=== PATIENT | male | born 1955 ===

== ENCOUNTER → 2018-08-13 | Outpatient (CLI) | payer OTHER ==
[~2018-08-13] MED LIST: ASCO500T2 PO; GLUC1CAP48 PO; MULT1TAB52 PO; OMEG1CAP6 PO
--- NOTE | 2018-08-13 21:31 | PAIN ---
DATE OF SERVICE: 08/13/2018 INITIAL CONSULTATION FOR PAIN CLINIC CHIEF COMPLAINT: Low back and right lower extremity pain. HISTORY OF PRESENT ILLNESS: This is a 62-year-old male who presents with history of pain for many years starting in 1980. 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 The patient reports he was doing fairly stable until about 2-1/2 months ago, he fell off a ladder at home and increased the pain in his low back and into his right lower extremity with some pain into the hip and into the thigh. This is cleared up significantly since the injury, but the pain in the back remains. The patient reports it is constant, described as intermittent changes during the day, aching, cramping, sharp, dull, alternating with some radiating shooting pain in the right leg again, which is significantly improved, but the back pain is still fairly tight, throbbing and stabbing. The patient did have an MRI scan of the lumbar spine showing a recent compression fracture superior endplate of L1, multiple degenerative disk disease levels with significant neural foraminal stenosis at L4-L5 and L5-S1 with prominent right paracentral disk protrusion at L4-L5. The patient rates his disability rate 0-10, 10 being the worst, as a 5 with family home responsibilities, social activity, occupation, 4 with sexual behavior, self-care and life support activities. The patient has not taken any [id number] medications or other modalities to try and decrease the pain. He does take some herbal supplements he reports, is unsure of the names and the patient has had [facility]rop[facility]ic treatment and [facility], which he reports does help; also soaks in a hot tub, which helps and do some massage therapies heat and ice applications. The patient reports the pain awakens him from sleep during night about once or twice a night, does not affect his bowel or bladder control but does affect his ability to walk. He is not using any assistive devices. He does not walk long distances greater than 20-30 minutes. PAST MEDICAL HISTORY: Significant for hearing loss in the right ear, irritable bowel syndrome, sleep apnea, hyperlipidemia, dizziness, headaches and arthritis. PAST SURGICAL HISTORY: Previous surgeries include tonsillectomy, sinus cyst removal and cholecystectomy. CURRENT MEDICATIONS: Include vitamin C, multivitamins, glucosamine and omega fish oil. ALLERGIES: The patient has no known drug allergies. FAMILY HISTORY: Significant for no major medical problems or conditions he is aware of. SOCIAL HISTORY: The patient does not drink alcohol; does not smoke and does not use any illegal, illicit or recreational drugs. He is and lives with his spouse, has one child, living at home, lives locally in [place], [place]. Reports he is retired from the [employer], now 28 years. REVIEW OF SYSTEMS: The patient's review of systems is positive for those items mentioned in history of present illness. All systems reviewed and otherwise negative. It is complete, full and well documented on the patient's chart. PHYSICAL EXAMINATION: VITAL SIGNS: The patient's blood pressure 140/98, pulse 90, respirations 16 and temperature 98.1 degrees Fahrenheit. Height is 5 feet 10 inches and weight is 271 pounds. GENERAL: The patient is awake, alert, oriented, appropriate and very pleasant demeanor. HEENT: Head shows normocephalic and atraumatic. Extraocular movements are intact and symmetrical. Oral cavity: Mucous membranes moist and pink. Dentition is intact. NECK: Shows anterior throat supple without palpable lymphadenopathy noted. Swallow reflex symmetrical. CHEST: Shows normal on inspection. Breath sounds are clear to auscultation bilaterally. HEART: Shows S1 and S2 clear. No murmurs auscultated. ABDOMEN: Soft, nontender and nondistended. No palpable organomegaly is noted. No rebound or guarding demonstrated. BACK: Shows spine grossly in the midline. Normal appearing thoracic kyphosis and some minor flattening of the lumbar lordotic curvature. Lumbar paraspinous muscle shows symmetrical on inspection. On palpation shows some moderate tenderness diffusely in the middle and lower distribution of the paraspinous musculature but also in the upper into the low thoracic paraspinous distribution. The patient shows good rotational motion, however, both laterally as well as extension and flexion without significant difficulty or pain reported. The patient shows good flexion and extension, lateral rotation at 10 degrees, flexion 45 degrees and extension at 10 degrees without significant pain is noted. EXTREMITIES: The patient's lower extremities show deep tendon reflexes at 2+ in the patellar, 1+ tendo-calcaneus tendons. Motor exam is strong with 5/5 dorsiflexion, extension, quadriceps and hamstring flexion are symmetrical and strong and equal. The patient's peripheral pulses are 1+ posterior tibia. No peripheral edema is noted. Straight leg raise noted to be negative for reproduction of radicular symptoms bilaterally. Gaenslen's and Martínez's maneuvers are negative bilaterally as well. Lower extremities are warm and dry to touch, equal in color and appearance. The patient is able to stand, stand on his toes without significant difficulty or loss of balance, is walking with a slight favoring gait, appears to favor his right lower extremity with a slight limp again not using any assistive devices to ambulate. SKIN: Shows warm and dry. Good turgor. No edema. No sores, rashes or bruising. IMPRESSION: 1. This is a 62-year-old male with a long history of low back pain, multiple injuries over his career and then a fall about 2-1/2 months ago from a ladder at home with increasing the pain with radicular pain in the right lower extremity, now clearing up significantly but the back pain persistent. 2. MRI scan of the lumbar spine as noted. 3. Arthritis. PLAN: Options were discussed with the patient including conservative medical management, physical therapy, interventional techniques. He would like to pursue current conservative measures as much as possible. We will encourage the patient to maintain a chiropractic treatment, also heat and massage therapy, stretching and strengthening exercises as he is doing currently. We offered physical therapy formally ordered for him, but he would like to wait on this and he is doing most of this on his own and feels he is doing a fairly good job and it sounds as though he is getting some good success in progress. If these changes in the future, we will be available for interventional techniques or formal physical therapy to be set up as well as pool therapy, which we discussed in some detail. The patient would like to consider this and we will follow up on as needed basis at this time. MARILIA SPAIN MD DR: PRANAY/michael JOB#: [id number] / [id number]
== END | disposition home or self-care (01) ==
LOC: PNCL 14:11
PROVIDERS: ATTEND Anesthesiology
DX: M54.5 Low back pain (principal); M79.604 Pain in right leg; G47.33 Obstructive sleep apnea (adult) (pediatric); E78.5 Hyperlipidemia, unspecified; M19.90 Unspecified osteoarthritis, unspecified site
CPT/HCPCS: G0463